=== PATIENT | male | born 1980 | race Caucasian/White ===

== ENCOUNTER 2017-07-11 11:08 | Emergency (ER) | payer OTHER ==
[2017-07-11 11:31] VITALS: BMI 33.1
--- NOTE | 2017-07-11 12:08 | PDOC ---
History of Present Illness - General Chief Complaint: Respiratory Stated Complaint: FEVER, COUGH Time Seen by Provider: 07/11/17 12:03 History Source: Patient Exam Limitations: No Limitations - History of Present Illness Initial Comments: CHIEF COMPLAINT: 37 y/o afebrile male with PMH NIDDM c/o tactile fever, sore throat, dry cough and body aches x 2 weeks. HISTORY OF PRESENT ILLNESS: the patient has been taking dayquil and nyquild for his symptoms with little relief. He denies earache, n/v/d, PRIDE, neck pain, CP, SOB, abd pain and all other symptoms. Vital signs on arrival are within normal limits REVIEW OF SYSTEMS: GENERAL/CONSTITUTIONAL: Subjective fever/chills. +body aches. No weakness. No weight change. HEAD, EYES, EARS, NOSE AND THROAT: +sore throat. No change in vision. No ear pain or discharge. CARDIOVASCULAR: No chest pain or shortness of breath. RESPIRATORY: +dry cough. No wheezing or hemoptysis. GASTROINTESTINAL: No abd pain, nausea, vomiting, diarrhea. GENITOURINARY: No dysuria, frequency, or change in urination. MUSCULOSKELETAL: No joint or muscle swelling or pain. No neck or back pain. SKIN: No rash or easy bruising. NEUROLOGIC: No headache, vertigo, loss of consciousness, or loss of sensation. PHYSICAL EXAM: GENERAL: The patient is awake, alert, and fully oriented, in no acute distress. He is non toxic appearing. HEAD: Normal with no signs of trauma. ENT: Pupils equal, round and reactive to light, extraocular movements intact, sclera anicteric, conjunctiva clear. Nasal congestion. Intermittent dry cough. Mucous membranes moist. Posterior pharyngeal erythema. No tonsilar edema or exudate. Uvula midline. No soft/hard palate deformities. LUNGS: Clear to auscultation bilaterally. Normal excursion. No respiratory distress or use of accessory muscles. No wheezing, rhonchi, crackles, rales. CV: RRR, S1/S2, no MRG. Cap refill < 2 sec. ABDOMEN: Soft, non-distended, non-tender even to deep palpation, no hepatomegaly or splenomegaly, no masses. EXTREMITIES: Normal range of motion, no edema. NEUROLOGICAL: Normal speech, normal gait. CN II-XII grossly intact. SKIN: Warm, dry, normal turgor, no rashes or lesions noted. Past History - Past Medical History Allergies/Adverse Reactions: Allergies Allergy/AdvReac Type Severity Reaction Status Date / Time No Known Allergies Allergy Verified 07/11/17 11:31 Home Medications: Ambulatory Orders Acetaminophen [Tylenol] 650 mg PO Q4H #20 tablet 07/11/17 Benzonatate [Tessalon Pearls -] 100 mg PO TID #21 capsule 07/11/17 Ibuprofen [Motrin -] 600 mg PO Q6H #20 tablet 07/11/17 Losartan Potassium 25 mg PO DAILY 07/11/17 Metformin HCl 500 mg PO DAILY 07/11/17 COPD: No Diabetes: Yes (niddm) - Suicide/Smoking/Psychosocial Hx Smoking History: Never smoked *Physical Exam - Vital Signs Last Vital Signs Temp Pulse Resp BP Pulse Ox 98.4 F 100 H 20 152/88 99 07/11/17 11:29 07/11/17 11:29 07/11/17 11:29 07/11/17 11:29 07/11/17 11:29 Medical Decision Making - Medical Decision Making A/P: 37 y/o male with flu like symptoms x 2 weeks. outside of tamiflu window. Will do rapid strep and give PO motrin. Rapid strep - negative Vital signs have improved. Patient no longer tachycardic. Will discharge to home with dx of URI with supportive care instructions. Suggested patient follow up with his doctor and return to the ER with any worsening or concerning symptoms. The patient verbalizes understanding of all instructions, has no further questions and is awaiting discharge. *DC/Admit/Observation/Transfer Diagnosis at time of Disposition: Upper respiratory infection Qualifiers: URI type: unspecified URI Qualified Code(s): J06.9 - Acute upper respiratory infection, unspecified - Discharge Dispostion Condition at time of disposition: Good - Referrals Referrals: Gail Rodriguez MD [Primary Care Provider] - Call tomorrow - Patient Instructions Printed Discharge Instructions: DI for Viral Upper Respiratory Infection -- Adult Additional Instructions: Discharge Instructions: -You have an upper respiratory infection. This is caused by a virus - it does not require antibiotics -A prescription for cough medicine has been sent to your pharmacy; please take as prescribed if needed for cough -Drink plenty of fluids -Take 650mg of Tylenol every 4 hours for fever -Take 600mg of Motrin every 6 hours with food for body aches -Follow up with your doctor in 1 week -Return to the ER with any worsening or concerning symptoms. Instrucciones de descarga: -Tienes lenora infeccin de las vas respiratorias superiores. [place] es causado por un virus, no requiere antibiticos -Lenora receta para el medicamento para la tos pride sido enviada a arvizu farmacia. por favor tome segn las indicaciones si es necesario para la tos -Beber mucho lquido -Nichole 650 mg de Tylenol cada 4 horas para la fiebre - Metz 600 mg de Motrin cada 6 horas con alimentos para paramjit en el cuerpo -Siga con arvizu doctor en 1 semana -Volver a la airam de emergencias con cualquier empeoramiento o sntomas. - Post Discharge Activity
[2017-07-11] MEDS ORDERED: IBUPROFEN 600 MG TABLET (FP) PO ONE ×2 (12:15→12:20)
[2017-07-11 13:24] VITALS: BP 126/78; PULSE 86; TEMP 100.2
[2017-07-11] MEDS ORDERED: ACETAMINOPHEN 325 MG TABLET (FP) PO ONE (13:26)
[2017-07-11] MEDS ORDERED: ACETAMINOPHEN 325 MG TABLET (FP) ONE (13:33)
== END 2017-07-11 13:38 | disposition home or self-care (01) ==
LOC: JER 11:08 → JERFT 11:08 → JER 13:38
DX: R07.0 Pain in throat (principal); M79.1 Myalgia; J06.9 Acute upper respiratory infection, unspecified; E11.9 Type 2 diabetes mellitus without complications; Z79.84 Long term (current) use of oral hypoglycemic drugs
CPT/HCPCS: 87070; 87430; 99282-25